=== PATIENT | male | born 1980 | race African-American/Black ===

== ENCOUNTER 2018-08-13 18:37 | Emergency (ER) | payer SELFPAY ==
[~2018-08-13] VITALS: Ht 193 cm; Wt 152.4 kg
== END 2018-08-13 20:00 | disposition home or self-care (01) ==
LOC: FSED 18:37
DX: I10 Essential (primary) hypertension (principal); E66.9 Obesity, unspecified; Z68.41 Body mass index [BMI] 40.0-44.9, adult
CPT/HCPCS: 99282